=== PATIENT | female | born 1945 | race Caucasian/White ===

== ENCOUNTER 2017-06-01 12:43 | Emergency (ER) | payer MEDICARE | END 2017-06-01 13:33 | disposition home or self-care (01) | LOC: SCSER 12:43 | DX: S39.012A Strain of muscle, fascia and tendon of lower back, initial encounter (principal); K21.9 Gastro-esophageal reflux disease without esophagitis; X50.0XXA Overexertion from strenuous movement or load, initial encounter | CPT/HCPCS: 99283 ==

== ENCOUNTER 2017-06-07 10:57 | Outpatient (CLI) | payer MEDICARE ==
--- NOTE | 2017-06-07 11:45 | RAD ---
THORACIC SPINE THREE VIEWS: History: Back pain. T12 compression fracture. Comparison: 02-27-17 FINDINGS: Compression of the T12 superior endplate is similar in appearance to the previous exam. Other vertebr al body heights are maintained. Pedicles are intact. Rightward convex curvature is similar to appeara nce to the prior study. Osteophytosis is present throughout the vertebral bodies and facets. Osseous structures are demineralized. IMPRESSION: 1. Stable radiographic appearance of a T12 superior endplate compression. 2. Thoracic spondylosis. 3. Osteoporosis. POS: [facility]
--- NOTE | 2017-06-07 11:46 | RAD ---
LUMBAR SPINE TWO VIEWS: History: Back pain. Compression fracture. Comparison: 01-16-17 FINDINGS: There are five lumbar type vertebrae. Pedicles are intact. Mild leftward convex curvature is similar in appearance to the prior study. Compression of the T12 superior endplate is similar in appearance to the prior study and better detai led on thoracic spine exam. There is osteophytosis throughout the lower facets. Osseous structures ar e demineralized. IMPRESSION: 1. Stable radiographic appearance of the T12 superior endplate compression. 2. Lumbar spondylosis. 3. Osteoporosis. POS: [facility]
== END 2017-06-07 10:58 | disposition home or self-care (01) ==
LOC: TBSIIMAG 10:57
PROVIDERS: ATTEND Neurological Surgery
DX: S22.008D Other fracture of unspecified thoracic vertebra, subsequent encounter for fracture with routine healing (principal); M43.06 Spondylolysis, lumbar region; M81.0 Age-related osteoporosis without current pathological fracture; M47.894 Other spondylosis, thoracic region
CPT/HCPCS: 72072; 72100

== ENCOUNTER 2019-05-22 18:00 | Outpatient (CLI) | payer MEDICARE | END 2019-05-22 18:01 | disposition home or self-care (01) | LOC: SLEEPLAB 18:00 | PROVIDERS: ATTEND Dentist General Practice | DX: G47.33 Obstructive sleep apnea (adult) (pediatric) (principal) | CPT/HCPCS: 95806 ==

== ENCOUNTER 2021-09-22 10:53 | Outpatient (CLI) | payer MEDICARE ==
[2021-09-22 12:06] LABS: #Basophils 0.1 10x3/uL (0.0-0.2); #Eosinphils 0.1 10x3/uL (0.0-0.5); #Monocytes 0.4 10x3/uL (0.0-1.1); #Neutrophils 5.4 10x3/uL (1.5-8.4); %Basophils 0.6 % (0.0-2.0); %Eosinophils 0.8 % (0.0-6.0); %Lymphocytes 24.4 % (18.0-47.0); %Monocytes 5.2 % (0.0-10.0); %Neutrophils 68.7 % (40.0-75.0); Hemoglobin 14.2 g/dL (12.0-15.5); Mean Corpuscular HGB CONC 32.1 g/dL (32.0-36.0); Mean Corpuscular Hemoglobin 29.8 pg (27.0-33.0); Mean Corpuscular Volume 93.1 fl (81.6-98.3); Mean Platelet Volume 10.3 fl (7.4-10.4); Platelet Count 295 10x3/uL (150-450); RBC Distribution Width 13.7 % (11.5-14.5); Red Blood Cell (RBC) Count 4.76 10x6/uL (3.90-5.03); White Blood Cell (WBC) Count 7.9 10x3/uL (3.5-10.5)
[2021-09-22 12:18] LABS: Anion Gap 15 mmol/L (10-20); BUN (Urea Nitrogen) 18 mg/dL (9.8-20.1); Calc. Creatinine Clearance 0 mL/min (70-130); Calcium 10.9 mg/dL (7.8-10.44); Carbon Dioxide 29 mmol/L (23-31); Chloride 101 mmol/L (98-107); Glucose 113 mg/dL (83-110); Potassium 4.7 mmol/L (3.5-5.1); Sodium 140 mmol/L (136-145)
[2021-09-23 00:10] LABS: SARS-CoV-2 PCR by NAA Not Detected (NotDetected)
== END 2021-09-22 10:54 | disposition home or self-care (01) ==
LOC: LABBT 10:53
PROVIDERS: ATTEND Specialist
DX: Z01.818 Encounter for other preprocedural examination (principal); K44.9 Diaphragmatic hernia without obstruction or gangrene; K21.9 Gastro-esophageal reflux disease without esophagitis; G47.33 Obstructive sleep apnea (adult) (pediatric); Z20.822 Contact with and (suspected) exposure to COVID-19
CPT/HCPCS: 80048; 85025; 93005; U0003; U0005; 93010

== ENCOUNTER 2025-02-04 12:17 | Outpatient (CLI) | payer MEDICARE | END 2025-02-04 12:18 | disposition home or self-care (01) | LOC: RAD 12:17 | PROVIDERS: ATTEND Internal Medicine Critical Care Medicine | DX: R06.00 Dyspnea, unspecified (principal) | CPT/HCPCS: 71046 ==